=== PATIENT | female | born 1960 | race Caucasian/White ===

== ENCOUNTER 2022-09-01 10:06 | Outpatient (CLI) | payer MEDICARE, MEDICAID, SELFPAY ==
--- NOTE | ~2022-09-01 | US_ITS ---
EXAMINATION: US carotid duplex BI DATE: 09/01/2022 10:41 INDICATION: Right carotid stenosis TECHNIQUE: Grayscale, color Doppler, and pulsed Doppler images of the cervical carotid arteries were obtained. The degree of vessel stenosis is placed in one of the following categories: normal, <50%, 5 0-69%, >=70% but less than near-occlusion, near-occlusion, or total occlusion. Note that percent sten osis relative to normal distal artery lumen diameter is indirectly measured from velocity measurement s as described by Henri, et al. Radiology 2003; 229:340-346. Notes: Normal: Peak systolic velocity <125 centimeters/sec and no plaque <50%. Peak systolic velocity <125 ( EDV <40; ICA/CCA PSV ratio <2.0; used these factors only a tandem lesions or low cardiac output or co ntralateral disease) 50-69 %: PSV 125-230 (EDV 40-100; ratio 2-4) >= 70% but less than near occlusion: PSV greater than 230 (EDV > 100; ratio> 4.0) Near Occlusion: PSV that is variable; markedly narrowed lumen Occlusion: Absent flow on color/spectral Doppler and no lumen on brown scale. COMPARISON: None. FINDINGS: RIGHT: The right common carotid artery (CCA) peak systolic velocity (PSV) is 56 cm/s. The right internal car otid artery (ICA) PSV is 89 cm/s. The right ICA end-diastolic velocity (EDV) is 32 cm/s. The right IC A/CCA PSV ratio is 1.6. The external carotid artery (ECA) PSV is 64 cm/s. There is antegrade flow in the right vertebral artery. LEFT: The left CCA PSV is 78 cm/s. The left ICA PSV is 93 cm/s. The left ICA EDV is 35 cm/s. The left ICA/C CA PSV ratio is 1.2. The ECA PSV is 220 cm/s. There is antegrade flow in the left vertebral artery. IMPRESSION: 1. Less than 50% stenosis in the right internal carotid artery by sonographic criteria. 2. Less than 50% stenosis in the left internal carotid artery by sonographic criteria. Reviewed, dictated and finalized at location A. IMPRESSION: 1. Less than 50% stenosis in the right internal carotid artery by sonographic byron jerome. 2. Less than 50% stenosis in the left internal carotid artery by sonographic priya hutchinson.
== END 2022-09-01 10:07 | disposition home or self-care (01) ==
PROVIDERS: PCP Family Medicine
DX: I65.21 Occlusion and stenosis of right carotid artery (principal)
CPT/HCPCS: 93880

== ENCOUNTER 2022-09-09 09:20 | Outpatient (CLI) | payer MEDICARE, MEDICAID, SELFPAY ==
--- NOTE | ~2022-09-09 | CT_ITS ---
EXAMINATION: CT lung screening DATE: 09/09/2022 10:08 INDICATION: hx of nicotine dependence,COPD,ESQUIVEL TECHNIQUE: Computed tomography (CT) of the chest was performed without intravenous contrast. Addition al 3D reconstructions utilizing coronal maximum intensity projection (MIP) were performed. Automated exposure control and iterative reconstruction technique were employed. The dose-length product was 16 6.61 mGy-cm. COMPARISON: None FINDINGS: Mild emphysema. Linear bands of discoid atelectasis/scarring in the lingula and right middle and lowe r lobes. 6 mm nodule in the left lower lobe on series 4, image 90. A couple 1-2 mm nodules in the lef t upper lobe. No pneumonia, pulmonary edema or pleural effusion. Heart size is normal. Atheroscleroti c coronary artery calcific location. Aortic valve calcification. No pericardial effusion. Thoracic ao rta is normal in caliber. No pathologically enlarged thoracic lymphadenopathy. Cholecystectomy clips at the gallbladder fossa. There are bridging osteophytes at multiple levels in the spine, consistent with diffuse idiopathic skeletal hyperostosis (DISH). IMPRESSION: 1. Lung-RADS category 3: Probably benign. Further evaluation is recommended with noncontrast low-dose chest CT in 6 months. Recommend six-month follow-up low-dose noncontrast chest CT. Reviewed, dictated and finalized at location B. IMPRESSION: 1. Lung-RADS category 3: Probably benign. Further evaluation is recommended wit h noncontrast low-dose chest CT in 6 months. Recommend six-month follow-up low- dose noncontrast chest CT.
--- NOTE | ~2022-09-09 | US_ITS ---
EXAMINATION: US pelvic limited DATE: 09/09/2022 11:33 INDICATION: Urinary incontinence TECHNIQUE: Multiple transabdominal sonographic images of the pelvis were obtained. COMPARISON: None. FINDINGS: The bladder appears normal with calculated prevoid bladder volume of 54 mL. Calculated post void blad luis armando volume of 4 mL which is within normal limits. There is no free fluid in the pelvis. IMPRESSION: 1. Unremarkable appearing gallbladder with calculated pre and postvoid bladder volumes of 54 mL and 4 mL respectively. Reviewed, dictated and finalized at location B.
== END 2022-09-09 09:21 | disposition home or self-care (01) ==
LOC: CHSIMG 09:23
PROVIDERS: PCP Family Medicine; Visit Provider Physician Assistant
DX: R32 Unspecified urinary incontinence (principal); F17.210 Nicotine dependence, cigarettes, uncomplicated
CPT/HCPCS: 71271; 76857